=== PATIENT | female | born 1995 | race Caucasian/White ===

== ENCOUNTER 2019-09-19 11:13 | Outpatient (CLI) | payer OTHER, SELFPAY ==
[2019-09-19 12:45] LABS: Basophils Percent Auto 0.3 % (0.2-1.2); Eosinophils Absolute Auto 0.1 K/mm3 (0-0.3); Eosinophils Percent Auto 1.1 % (0-4.4); Hematocrit 31.2 % (37.0-47.0); Hemoglobin 10.4 g/dL (12.0-15.0); Immature Granulocyte Absolute 0.13 K/mm3 (0.00-0.031); Immature Granulocyte Percent A 1.1 % (0-0.5); Lymphocytes Absolute Auto 1.04 K/mm3 (0.9-3.2); Lymphocytes Percent Auto 9.2 % (18.3-44.2); Mean Corpuscular HGB Conc 33.3 g/dl (32-36); Mean Corpuscular Hemoglobin 30.6 pg (26-34); Mean Corpuscular Volume 91.8 fl (80-100); Mean Platelet Volume 10.4 fl (7.4-10.4); Monocytes Absolute Auto 0.8 K/mm3 (0.1-0.6); Neutrophils Absolute Auto 9.2 K/mm3 (1.3-6.7); Neutrophils Percent Auto 81.3 % (45.5-73.1); Platelet Count Result 145 k/mm3 (150-375); Red Cell Distribution Width 13.2 % (11.5-14.5); White Blood Count 11.3 K/mm3 (4.5-10.0)
[2019-09-19 12:57] LABS: Glucose 1 Hour PP 50gm Dose 78 mg/dL
== END 2019-09-19 11:14 | disposition home or self-care (01) ==
PROVIDERS: Visit Provider Obstetrics & Gynecology
DX: Z34.90 Encounter for supervision of normal pregnancy, unspecified, unspecified trimester (principal)
CPT/HCPCS: 36415; 82947; 85025

== ENCOUNTER 2019-11-12 16:51 | Outpatient (CLI) | payer OTHER, SELFPAY ==
[2019-11-12 17:17] LABS: Basophils Percent Auto 0.3 % (0.2-1.2); Eosinophils Absolute Auto 0.1 K/mm3 (0-0.3); Eosinophils Percent Auto 0.9 % (0-4.4); Hemoglobin 10.8 g/dL (12.0-15.0); Immature Granulocyte Absolute 0.29 K/mm3 (0.00-0.031); Immature Granulocyte Percent A 2.5 % (0-0.5); Immature Platelet Fraction Pct 6.5 % (0.9-11.2); Lymphocytes Absolute Auto 1.02 K/mm3 (0.9-3.2); Lymphocytes Percent Auto 8.8 % (18.3-44.2); Mean Corpuscular HGB Conc 32.7 g/dl (32-36); Mean Corpuscular Hemoglobin 29.5 pg (26-34); Mean Corpuscular Volume 90.2 fl (80-100); Monocytes Absolute Auto 0.8 K/mm3 (0.1-0.6); Monocytes Percent Auto 6.8 % (2.6-8.5); Neutrophils Absolute Auto 9.4 K/mm3 (1.3-6.7); Neutrophils Percent Auto 80.7 % (45.5-73.1); Platelet Count Result 141 k/mm3 (150-375); Red Blood Count 3.66 M/mm3 (4.2-5.4); Red Cell Distribution Width 14.6 % (11.5-14.5); White Blood Count 11.6 K/mm3 (4.5-10.0)
[2019-11-12 18:10] LABS: HIV 1/2 Ab P24 Ag Result Negative (Negative)
[2019-11-13 11:27] LABS: Rapid Plasma Reagin Non-Reactive (NonReactive)
== END 2019-11-12 16:52 | disposition home or self-care (01) ==
PROVIDERS: Visit Provider Obstetrics & Gynecology
DX: Z34.90 Encounter for supervision of normal pregnancy, unspecified, unspecified trimester (principal); Z3A.00 Weeks of gestation of pregnancy not specified
CPT/HCPCS: 36415; 85025; 85055; 86592; 86703; G0432

== ENCOUNTER 2020-01-03 09:54 | Outpatient (RCR) | payer OTHER, SELFPAY ==
[2019-11-27 11:00] VITALS: BP 118/62; PULSE 110
[2019-12-31 09:55] VITALS: BP 105/72; PULSE 114
--- NOTE | 2019-12-31 10:28 | PC.NURSE ---
1025- BPP 03/14, TAE 12.4, results discussed with Dr. Dahl, patient to be discharged home and to return Monday for repeat BPP and TAE.
--- NOTE | ~2020-01-03 | US_ITS ---
EXAMINATION: US OB limited w BPP DATE: 12/31/2019 10:11 INDICATION: Full-term. TECHNIQUE: Real-time pelvic ultrasound was performed. COMPARISON: None. FINDINGS: There is a single living fetus in vertex presentation. The placenta is anterior. heart rate is 125 beats per minute (bpm). The amniotic fluid index is 12.4 cm, which is normal. Biophysical profile performed by the technologist: breathing (30 sec sustained breathing in 30 minutes): 2 out of 2 movement (3 gross body movements in 30 minutes): 2 out of 2 tone (one episode of ixoeeht-sjhxavohm-qxcyzfz limb movement): 2 out of 2 Amniotic fluid pocket (2 cm): 2 out of 2 Total score: 8 out of 8 IMPRESSION: 1. Single living fetus in vertex presentation. 2. Biophysical profile 8 out of 8. Reviewed, dictated and finalized at location A.
--- NOTE | ~2020-01-03 | US_ITS ---
CORRECTED REPORT Procedure description corrected. 01/03/20 se EXAMINATION: US OB BPP wo non-stress DATE: 01/03/2020 11:28 INDICATION: Postdates, third trimester TECHNIQUE: Real-time pelvic ultrasound was performed. The interpreting radiologist was not present for the study. COMPARISON: 12/31/2019 FINDINGS: There is a single living fetus in vertex presentation. The placenta is anterior/fundal. heart rate is 137 beats per minute (bpm). Biophysical profile performed by the technologist: breathing (30 sec sustained breathing in 30 minutes): 2 out of 2 movement (3 gross body movements in 30 minutes): 2 out of 2 tone (one episode of dfgmdoy-vrgamszag-zrpwnmi limb movement): 2 out of 2 Amniotic fluid pocket (2 cm): 2 out of 2 Total score: 8 out of 8 IMPRESSION: 1. Single living fetus in vertex presentation. 2. Biophysical profile 8 out of 8. Reviewed, dictated and finalized at location A. MTDD
[2020-01-03 10:40] VITALS: BP 115/67; PULSE 97
== END 2020-01-07 07:39 | disposition home or self-care (01) ==
LOC: ANHOBOP 09:54
PROVIDERS: Visit Provider Obstetrics & Gynecology
DX: O36.8130 Decreased fetal movements, third trimester, not applicable or unspecified (principal); Z3A.35 35 weeks gestation of pregnancy; O48.0 Post-term pregnancy; Z3A.40 40 weeks gestation of pregnancy
CPT/HCPCS: 59025; 76815; 76819

== ENCOUNTER 2020-01-05 17:54 | Inpatient (IN) | payer OTHER, SELFPAY ==
[2020-01-05 18:20] VITALS: BP 124/70; PULSE 131
--- NOTE | 2020-01-05 18:22 | LDADM ---
This patient, Kamilah Tripp, was admitted to Labor/Delivery/Recovery 108 on 01/05/20 at 17:54. Plans for labor, pain management and were discussed with patient. Patient/family oriented to hospital policies and general routines including ID bracelet, bed and alarms, visiting hours, pain management, procedures, bathroom and other care routines, personal items, smoking policy, room service/diet and guest tray routines, security routines, and visiting hours. Patient/Family are encouraged to report perceived risks to care and to ask questions if they do not understand what they are told or what they should do. See OBIX for further documentation.
[2020-01-05 18:34] VITALS: TEMP 36.9
[2020-01-05 18:36] LABS: Basophils Percent Auto 0.3 % (0.2-1.2); Eosinophils Absolute Auto 0.1 K/mm3 (0-0.3); Eosinophils Percent Auto 0.6 % (0-4.4); Hematocrit 30.6 % (37.0-47.0); Immature Granulocyte Absolute 0.29 K/mm3 (0.00-0.031); Immature Granulocyte Percent A 2.5 % (0-0.5); Immature Platelet Fraction Pct 8.5 % (0.9-11.2); Lymphocytes Absolute Auto 0.76 K/mm3 (0.9-3.2); Lymphocytes Percent Auto 6.5 % (18.3-44.2); Mean Corpuscular HGB Conc 32.7 g/dl (32-36); Mean Corpuscular Hemoglobin 28.9 pg (26-34); Mean Corpuscular Volume 88.4 fl (80-100); Mean Platelet Volume 12.4 fl (7.4-10.4); Monocytes Absolute Auto 0.9 K/mm3 (0.1-0.6); Monocytes Percent Auto 7.8 % (2.6-8.5); Neutrophils Absolute Auto 9.6 K/mm3 (1.3-6.7); Neutrophils Percent Auto 82.3 % (45.5-73.1); Nucleated Red Blood Cells Absolute Auto 0.1 K/mm3 (0.0-0.012); Nucleated Red Blood Cells Perc 0.5 % (0.0-0.2); Platelet Count Result 153 k/mm3 (150-375); Red Blood Count 3.46 M/mm3 (4.2-5.4); Red Cell Distribution Width 15.9 % (11.5-14.5); White Blood Count 11.6 K/mm3 (4.5-10.0)
[2020-01-05] MEDS: DINOPROSTONE 10 MG VAG INSERT VAGINAL (18:38)
[2020-01-05 19:58] VITALS: BP 111/67; PULSE 109
[2020-01-05 22:22] VITALS: TEMP 36.3
[2020-01-06] VITALS (121 sets, daily range): BP systolic 92–143; BP diastolic 46–122; PULSE 60–148; RESP 18; TEMP 36.2–37.1; O2SAT 96–100; BMI 31.0
[2020-01-06] MEDS: OXYTOCIN 30 UNITS/NS 500 ML 30 UNITS/500 ML BAG 6 UNITS IV CONT (07:56)
--- NOTE | 2020-01-06 09:14 | WPDANESEPP ---
Anes - Eval Pre Procedure Procedure: Labor Pain Management Date/Time: 01/06/20 09:14 Surgeon: Isidro Salamanca MD Preop Diagnosis: Pain During Labor Pre Op Diagnosis: Induction of Labor Patient Data Age: 24 Gender: F Height: 5 ft 9 in Weight: 95.45 kg Last Vital Signs Temp 97.6 F 01/06/20 08:06 Pulse 97 01/06/20 09:00 BP 114/65 01/06/20 09:00 Allergies Allergy/AdvReac Type Severity Reaction Status Date / Time amoxicillin Allergy Unknown Rash Verified 12/31/19 08:47 Home Medications Medication Instructions Recorded Confirmed Type vits 75-iron 28 mg-folic 1 pkg PO DAILY 06/27/19 01/05/20 History acid 800 mcg-omega-3 oral combo pack polysaccharide iron complex 150 mg 150 mg PO DAILY #30 cap 10/03/19 01/05/20 Rx iron capsule cholecalciferol (vitamin D3) 25 mcg PO BID 12/02/19 12/02/19 History [Vitamin D3] Laboratory Tests 01/05/20 01/05/20 01/05/20 18:29 18:29 18:29 WBC 11.6 K/mm3 H K/mm3 (4.5-10.0) RBC 3.46 M/mm3 L M/mm3 (4.2-5.4) Hgb 10.0 g/dL L g/dL (12.0-15.0) Hct 30.6 % L % (37.0-47.0) MCV 88.4 fl fl (80-100) MCH 28.9 pg pg (26-34) MCHC 32.7 g/dl g/dl (32-36) RDW 15.9 % H % (11.5-14.5) Plt Count 153 k/mm3 k/mm3 (150-375) MPV 12.4 fl H fl (7.4-10.4) Immature Gran % (Auto) 2.5 % H % (0-0.5) Neut % (Auto) 82.3 % H % (45.5-73.1) Lymph % (Auto) 6.5 % L % (18.3-44.2) [place] % (Auto) 7.8 % % (2.6-8.5) Eos % (Auto) 0.6 % % (0-4.4) Baso % (Auto) 0.3 % % (0.2-1.2) Lymph # (Auto) 0.76 K/mm3 L K/mm3 (0.9-3.2) [place] # (Auto) 0.9 K/mm3 H K/mm3 (0.1-0.6) Eos # (Auto) 0.1 K/mm3 K/mm3 (0-0.3) Baso # (Auto) 0.0 K/mm3 K/mm3 (0.0-0.1) Abs Immat Gran (auto) 0.29 K/mm3 H K/mm3 (0.00-0.031) Absolute Neuts (auto) 9.6 K/mm3 H K/mm3 (1.3-6.7) Absolute Nucleated RBC 0.1 K/mm3 H K/mm3 (0.0-0.012) Nucleated RBC % 0.5 % H % (0.0-0.2) % Immature Plt Fraction 8.5 % % (0.9-11.2) RPR Pending Blood Type A Positive Antibody Screen Negative : gestational age (EDC 12/30/19) Patient hx anesthesia problems: none Family hx anesthesia problems: none PMFSH Past Medical History Medical History (Updated 01/06/20 @ 09:13 by Yolanda Orozco CRNA) Anemia Encounter for supervision of normal first in second trimester Irregular heart beat Social History Social History Smoking status: Never smoker Smoking end date: 08/07/18 Alcohol intake: never Substance use: former Substance use type: marijuana Spiritual care concerns: No Exam Day of Procedure 01/06/20 09:14
[2020-01-06 13:56] LABS: Rapid Plasma Reagin Non-Reactive (NonReactive)
[2020-01-06] MEDS: LACTATED RINGERS 1,000 ML 125 ML IV CONT ×2 (13:57→16:40)
--- NOTE | 2020-01-06 18:10 | PM.OBPRVD ---
OB - Delivery Note Procedure Delivery date: 01/06/20 Procedure: Spontaneous vaginal delivery Induction method: per misoprostol protocol and per pitocin protocol Delivery augmentation: rupture of membranes (meconium) Delivery monitor: external FHT Route of delivery: Laceration description: Vaginal - 1st Degree Delivery repair: vicryl (3.0) Specimen: No Estimated blood loss (mL): 250 Anesthesia type: Epidural Disposition: floor Narrative: She was admitted on 01/04 for medical induction of labor with cervidil. She had pitocin started. She had assisted rupture of membranes and thin meconium noted. She progressed to complete. She delivered a male infant. There were two loose nuchal cords manually reduced. There was also a cord around the leg manually reduced. He was placed on maternal abdomen, vigorously crying. A small amount of terminal meconium noted. Placenta delivered spontaneously and intact. She sustained a vaginal laceration at the right sidewall of vagina to the introitus. Repaired with 3.0 vicryl hemostasis noted. EBL 250cc. [place] Baby Date of : 01/06/20 Weeks of gestation at delivery: 41 Infant gender: Male Weight (pounds): 8 Weight (ounces): 11 presentation: vertex position: Right Occiput Anterior Placenta delivery description: Spontaneous cord vessel description: Nuchal Cord (x 2), Loose, Reduced and Around Extremity x1 score one minute: 8 score five minutes: 9 Narrative: Terminal meconium noted
[2020-01-06] MEDS: OXYTOCIN 30 UNITS/NS 500 ML 30 UNITS/500 ML BAG 125 UNITS IV CONT (18:13)
[2020-01-06] MEDS: IBUPROFEN 600 MG TABLET PO (20:38)
[2020-01-06] MEDS: WITCH HAZEL 40 PADS 1 PAD TOPICAL (20:39)
[2020-01-06] MEDS: BENZOCAINE 20% AER SPR (*SP) 56 GM CAN 1 SPRAY TOPICAL (20:40)
--- NOTE | 2020-01-06 20:57 | PC.NURSE ---
Patient transferred to post room #282 in wheelchair. Support person present. Oriented to unit, room, information board, rooming in, admission packet and security measures. Patient verbalizes understanding.
[2020-01-07 05:12] LABS: Hemoglobin 8.5 g/dL (12.0-15.0)
[2020-01-07] MEDS: IBUPROFEN 600 MG TABLET PO ×3 (05:30→22:40)
--- NOTE | 2020-01-07 08:02 | WPDANLDPN2 ---
Anes-Prog Note L&D Date/Time: 01/07/20 08:02 Comfortable throughout: labor and delivery Neuraxial method: epidural Epidural/Spinal procedure site: clean & non-tender Neuro status: Neuro function grossly intact. Cardiovascular status: normal Respiratory status: normal Airway patency: baseline Mental status: baseline Post-Op hydration status: normal Vital Signs: Last Vital Signs Temp 98.2 F 01/06/20 21:10 Pulse 112 H 01/06/20 21:10 Resp 18 01/06/20 21:10 BP 110/70 01/06/20 21:10 Pulse Ox 99 01/06/20 21:10 I/O: Intake & Output 01/06/20 01/07/20 01/07/20 23:59 07:59 15:59 Intake Total 1000 Output Total 112 Balance 888 Patient feedback: Patient satisfied with anesthetic care.
[2020-01-07 08:20] VITALS: BP 114/56; PULSE 103; RESP 18; TEMP 37; O2SAT 99
--- NOTE | 2020-01-07 08:41 | PM.OBPNVD ---
OB - PN: Subj Subjective Date/time seen: 01/07/20 08:41 Denies lightheadedness or dizziness. Ambulating well. Patient comments: pain well controlled, tolerating diet and other (Decreasing lochia.) baby status: doing well and nursing well [place] feeding status: exclusively breast feeding OB - PN: Obj Data Labs CBC & Chem 7: 01/07/20 03:56 Labs: Laboratory Results - last 24 hr 01/05/20 01/07/20 18:29 03:56 Hgb 8.5 L Hct 26.0 L RPR Non-reactive OB - PN A/P Plan day: 1 Plan: routine care Comments: Patient doing well. Time Spent With Patient Time: Total time spent is greater than 50% in coordination of care (as documented) at patient's floor/unit and/or counseling patient: Exam Psych: Affect: normal affect Other: Abd: fundus firm below umbilicus, nontender Perineum: healing Ext: nontender
[2020-01-07] MEDS: POLYSACCHARIDE IRON COMPLEX 150 MG CAPSULE PO ×2 (09:33→15:56)
[2020-01-07] MEDS: DOCUSATE SODIUM 100 MG CAPSULE PO ×2 (09:33→15:56)
[2020-01-07] MEDS: MULTIVIT/MIN/PREN/FOL AC/IRON TABLET 1 TAB PO (09:33)
--- NOTE | 2020-01-07 10:20 | PC.NURSE ---
Consulted with patient, infant is easily awoken and eager to feed. Reviewed feeding cues, frequencies, duration of feedings, feeding elimination flow sheet, and signs of adequate intake. Demonstrated stimulation techniques to wake for feeding. Assisted with to breast. Reviewed positioning/alignment in cross cradle, holding breast in U hold and guided asymmetrical latch on. was able to latch correctly. Infant nursed eagerly, with steady draws and frequent swallowing noted. Reviewed signs of a correct latch, effective nursing and suck swallow ratio. Mother switched to cradle,positioning, suggested mother hold breast during entire feeding to assist maintaining deep latch for her comfort and increased intake. Demonstrated how to adjust latch more deeply while feeding. Infant was able to maintain latch without discomfort to mother. Nipple care reviewed. Instructed mother to call out for RN assistance if she is unable to latch for feeding or she has discomfort with nursing. Instructed feeding should be initiated three hours from start of last feeding or if feeding cues are noted before. Mother voiced understanding of information shared.
[2020-01-07 19:25] VITALS: BP 118/66; PULSE 108; RESP 16; TEMP 36.8
[2020-01-08] MEDS: IBUPROFEN 600 MG TABLET PO (07:12)
[2020-01-08] MEDS: DOCUSATE SODIUM 100 MG CAPSULE PO (07:12)
[2020-01-08] MEDS: MULTIVIT/MIN/PREN/FOL AC/IRON TABLET 1 TAB PO (07:12)
[2020-01-08] MEDS: POLYSACCHARIDE IRON COMPLEX 150 MG CAPSULE PO (07:12)
[2020-01-08 07:15] VITALS: BP 122/63; PULSE 112; RESP 14; TEMP 36.4; O2SAT 98
--- NOTE | 2020-01-08 09:09 | PM.IMHP ---
H&P: HPI History of Present Illness Chief complaint: Induction of Labor Narrative: Kamilah Tripp is a 24 year old female at 41 weeks admitted for medical induction of labor for post dates. EDC 12/30/19 by 7 week U/S which was not consistent with LMP of 03/18/19. PNC significant for anemia of . She was taking PNV daily and iron supplementation. Labs: A+,Abneg,HIVneg, RPR-nr, HepBsag-neg, epCab-neg, Rub_imm,Varicella-Im, TSH-nl, Urine Cx-neg, GC/chl -/-, CF-ng, Pap-nl,h/h136 HeglbE-nromal, one hour glu-78, h/h-.,third trimester HIV neg, GBSneg, RPRneg, Review of Systems Review of Systems: All systems reviewed & are unremarkable except as noted in HPI and below Constitutional: Constitutional: Reports no additional constitutional complaints and Denies headache(s) Eyes: Eyes: Denies spots in vision ENT: Reports system reviewed and no additional complaints, except as documented and Denies headache(s) Cardiovascular: Cardiovascular: Denies chest pain and Denies dyspnea Respiratory: Respiratory: Denies dyspnea Gastrointestinal: Gastrointestinal: Reports no additional gastrointestinal complaints Genitourinary: Genitourinary: Reports amenorrhea Musculoskeletal: Musculoskeletal: Reports no additional musculoskeletal complaints Integumentary/Breasts: Skin/Breast: Denies breast mass and Denies rash Neurologic: Denies headache(s) Psychiatric: Psychiatric: Reports no additional psychiatric complaints [facility] Past Medical History Medical History (Updated 01/10/20 @ 13:47 by Daniel Salamanca MD) Anemia Elective induction of labor planned Encounter for supervision of normal first in second trimester Irregular heart beat Social History Social History Smoking status: Never smoker Smoking end date: 08/07/18 Alcohol intake: never Substance use: former Substance use type: marijuana Spiritual care concerns: No Meds Home Medications and Allergies Home Medications Medication Instructions Recorded Confirmed Type vits 75-iron 28 mg-folic 1 pkg PO DAILY 06/27/19 01/05/20 History acid 800 mcg-omega-3 oral combo pack cholecalciferol (vitamin D3) 25 mcg PO BID 12/02/19 12/02/19 History [Vitamin D3] polysaccharide iron complex 150 mg PO DAILY #30 cap 01/08/20 Rx [Ferric x-150] Allergies Allergy/AdvReac Type Severity Reaction Status Date / Time amoxicillin Allergy Unknown Rash Verified 12/31/19 08:47 Vital Signs Vital Signs - 24 hr 01/07/20 19:25 01/08/20 07:15 Temperature 98.2 F 97.6 F Pulse Rate 108 H 112 H Respiratory Rate 16 14 Blood Pressure 118/66 122/63 Pulse Oximetry 98 Exam Const: General: no acute distress Eyes: General: appearance normal, both eyes and all related structures Resp: Effort & Inspection: normal respiratory effort Cardio: Rate: regular rate GI: Other: Gravid no fundal tenderness no right upper quadrant pain : Manual OB Exam: dilated 1 cm, effaced 50% and station high Skin: General skin exam: no rashes or lesions noted Neuro: Cognition (Neuro): normal cognition Extrem: General: normal to inspection Psych: Mental Status: mental status grossly normal Assessment and Plan Assessment and plan (1) Elective induction of labor planned: Status: Acute Assessment and Plan: Post dates induction. Neg GBS carrier. She has been counseled regarding risk benefits of induction and risk of postdates. Admit for cervidil then Pitocin. Anticipate vaginal delivery.
--- NOTE | 2020-01-08 09:09 | PM.OBPNVD ---
OB - PN: Subj Subjective Date/time seen: 01/08/20 09:09 Patient comments: pain well controlled, tolerating diet and other (Decreasing lochia.) baby status: doing well and nursing well [place] feeding status: exclusively breast feeding OB - PN: Obj Data Labs CBC & Chem 7: 01/07/20 03:56 OB - PN A/P Plan day: 2 Plan: discharge home and other Comments: Patient doing well. Follow up 4-6 weeks. Discharge instructions provided. Time Spent With Patient Time: Total time spent is greater than 50% in coordination of care (as documented) at patient's floor/unit and/or counseling patient: Time with patient: less than 15 minutes Exam Psych: Affect: normal affect Other: Abd: fundus firm below umbilicus, nontender Perineum: healing Ext: nontender
--- NOTE | 2020-01-08 09:10 | PM.OBDSVD ---
DS: Admitting Diagnosis Admitting Diagnosis Admitting Diagnosis: Medical induction of labor for post dates. DS: Discharge Diagnosis Discharge Diagnosis (1) : Code(s): Z34.90 - Encounter for supervision of normal , unspecified, unspecified trimester Status: Acute OB - DS: Summary OB Procedures : None OB Procedures Intrapartum: Spontaneous Vag Delivery OB Procedures: : None Time Spent with Patient Time attestation: Total time spent providing and/or coordinating discharge services: Exam Const: General: comfortable Resp: Effort & Inspection: normal respiratory effort GI: GI Palp: Yes Soft to palpation DS: Data Procedures/Treatments: Spontaneous vaginal delivery Discharge Plan Discharge Attending physician on discharge: Daniel Salamanca Discharging Clinician: Daniel Salamanca Anticipated Discharge Date/Time: 01/08/20 09:11 Patient Disposition: Home, Self-Care Activity: pelvic rest Diet: regular Discharge Instructions: Routine post vaginal delivery instructions. Call for temperature >100.4, saturating more than a pad an hour, leg pain or redness, redness on breast. Take vitamin daily. Take iron supplement daily. Stand Alone Forms: General Discharge Information Follow-up/Referrals: Daniel Salamanca MD [Physician] - 4 Weeks Discharge Medications: No Action One A Day Women's DHA 28 mg iron- 800 mcg combo pack 1 pkg PO DAILY RF: 0 cholecalciferol (vitamin D3) [Vitamin D3] 25 mcg (1,000 unit) Capsule 25 mcg PO BID RF: 0 polysaccharide iron complex [Ferric x-150] 150 mg iron capsule 150 mg PO DAILY Qty: 30 RF: 1 Date of admission: 01/05/20 17:54 Primary Care Provider: PHYSICIAN,QUANTITATIVE DEVELOPER Admitting Provider: Daniel Salamanca Attending physician on admission: Daniel Salamanca
[2020-01-08] MEDS: TETANUS,DIPHTHERIA,AC PERTUSSIS ADULT (0.5 ML) BOOSTRIX IM (11:12)
[2020-01-09 08:28] VITALS: BP 115/67; PULSE 104; RESP 22
== END 2020-01-08 13:32 | disposition home or self-care (01) | DRG 807 ==
LOC: ANHLDR 01-06 16:02 → ANHOB2 01-06 21:05
PROVIDERS: Admitting Provider Obstetrics & Gynecology; Visit Provider Obstetrics & Gynecology
DX: O69.82X0 Labor and delivery complicated by other cord entanglement, without compression, not applicable or unspecified (principal); Z37.0 Single live birth; Z3A.41 41 weeks gestation of pregnancy; O70.0 First degree perineal laceration during delivery; O77.0 Labor and delivery complicated by meconium in amniotic fluid; O99.02 Anemia complicating childbirth; D64.9 Anemia, unspecified
CPT/HCPCS: 36415; 85014; 85018; 85025; 85055; 86592; 86850; 86900; 86901; 90715; A9270; J2590; J2795; J3010; J7120